=== PATIENT | female | born 1970 | race Caucasian/White ===

== ENCOUNTER → 2024-09-05 16:05 | Outpatient (BNVA) | payer OTHER, SELFPAY | PROVIDERS: PCP Family Medicine; Visit Provider Family Medicine | DX: Z00.00 Encounter for general adult medical examination without abnormal findings (principal); R73.01 Impaired fasting glucose; F17.210 Nicotine dependence, cigarettes, uncomplicated; T78.40XA Allergy, unspecified, initial encounter; X58.XXXA Exposure to other specified factors, initial encounter | CPT/HCPCS: 96127; 99212; 99396 ==

== ENCOUNTER 2024-09-11 11:44 | Outpatient (REF) | payer OTHER, SELFPAY ==
--- OUTSIDE RECORDS SUMMARY | 2024-09-11 13:22 | XMS_ITS | Clinical Summary ---
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 Role Phone Unavailable Primary Care Provider Unavailabl e Social History Tobacco Use Types Packs/Day Years Used Date Smoking Tobacco: Never Assessed Comments Unknown Sex and Gender Information Value Date Recorded Sex Assigned at Not on file Legal Sex Female 10:51 AM EST Gender Identity Not on file Sexual Orientation Not on file Plan of Treatment Health Maintenance Due Date Last Done Comments Breast Cancer Screening 1970 DTaP,Tdap,and Td Vaccines (1 - Tdap) 02/16/1987 Hepatitis B Vaccines (1 of 3 - 19+ 3-dose series) 02/16/1987 Cervical Cancer Screening: P ap Smear 02/16/1989 Pneumococcal Vaccine: 50+ Ye ars (1 of 1 - PCV) 02/16/2018 Zoster Vaccines (1 of 2) 02/16/2018 COVID-19 Vaccine ( - 2023-2 5 season) 2024 Influenza Vaccine (Season Ended) 2025 HIB Vaccines Aged Out No longer eligi ble based on patient's age to complete this topic HPV Vaccines Aged Out No longer eligi ble based on patient's age to complete this topic Hepatitis A Vaccines Aged Out No long er eligible based on patient's age to complete this topic IPV Vaccines Aged Out No longer eligi ble based on patient's age to complete this topic MMR Vaccines Aged Out No longer eligi ble based on patient's age to complete this topic Meningococcal ACWY Vaccine Aged Out N o longer eligible based on patient's age to complete this topic Meningococcal B Vaccine Aged Out No l onger eligible based on patient's age to complete this topic Pneumococcal Vaccine: Pediat rics (0 to 5 Years) and At-Risk Patients (6 to 64 Years) Aged Out No longer eligible b ased on patient's age to complete this topic RSV Immunization Patients Un lillie 20 months Aged Out No longer eligible b ased on patient's age to complete this topic Varicella Vaccines Aged Out No longer eligible based on patient's age to complete this topic
[2024-09-11 13:32] LABS: MANUAL DIFF FLAG NO
[2024-09-11 13:50] LABS: Basophils Percent Auto 0.4 % (0-2); Eosinophils Absolute Auto 0.1 X10*3/uL (0.0-0.4); Eosinophils Percent Auto 1.4 % (0-4); Hematocrit 43.3 % (37.0-47.0); Hemoglobin 14.3 g/dl (12.0-16.0); Imm Gran Abs Auto 0.03 X10*3/uL (0.00-0.03); Imm Gran Pct Auto 0.3 % (0.0-0.4); Lymphocytes Absolute Auto 2.1 X10*3/uL (1.2-4.9); Lymphocytes Percent Auto 21.5 % (20-40); Mean Corpuscular Hemoglobin 30.6 pg (27.0-33.0); Mean Corpuscular Volume 92.7 fL (80.0-98.0); Mean Platelet Volume 10.5 fL (9.4-12.3); Monocytes Absolute Auto 0.7 X10*3/uL (0.1-1.2); Monocytes Percent Auto 7.6 % (2-11); Neutrophils Absolute Auto 6.6 x10*3/uL (2.0-8.3); Neutrophils Percent Auto 68.8 % (45-73); Platelet Count 352 X10*3/uL (160-400); Red Blood Count 4.67 X10*6/uL (4.20-5.50); White Blood Count 9.6 X10*3/uL (4.8-10.8)
[2024-09-11 14:58] LABS: Folate 11.6 ng/mL (> or = 4.0); Vitamin B12 425 pg/mL (200-900)
[2024-09-11 15:14] LABS: Anion Gap 15 (12-20)
[2024-09-11 15:24] LABS: Alanine Aminotransferase 11 U/L (0-31); Albumin Level 4.3 g/dL (3.5-5.0); Aspartate Amino Transferase 24 U/L (5-31); Bilirubin Total 0.5 mg/dL (0.0-1.0); Blood Urea Nitrogen 19 mg/dL (9-16); Calcium 9.4 mg/dL (8.4-10.2); Carbon Dioxide 30 mmol/L (22-29); Chloride 100 mmol/L (96-108); Cholesterol 230 mg/dL (<200); Estimated Glomerular Filt Rate > 60; Glucose Fasting 92 mg/dL (60-99); HDL Cholesterol 90 mg/dL (>40); LDL Cholesterol Calculated 127 mg/dL (<100); Potassium 3.9 mmol/L (3.3-5.1); Sodium 141 mmol/L (135-145); TSH reflex Free T4 0.41 uIU/mL (0.32-4.0); Total Protein 7.2 g/dL (6.5-8.0); Triglycerides 65 mg/dL (<150); Vitamin D 25-OH Total 41.1 ng/mL (>30)
[2024-09-11 17:10] LABS: Alkaline Phosphatase 59 U/L (39-117)
== END 2024-09-11 11:45 | disposition home or self-care (01) ==
LOC: HO.HMGCLDS 11:44
PROVIDERS: PCP Family Medicine; Visit Provider Family Medicine
DX: Z00.00 Encounter for general adult medical examination without abnormal findings (principal); E53.8 Deficiency of other specified B group vitamins; E55.9 Vitamin D deficiency, unspecified
CPT/HCPCS: 36415; 80053; 80061; 82306; 82607; 82746; 84443; 85025

== ENCOUNTER 2024-09-13 10:00 | Outpatient (REF) | payer OTHER, SELFPAY ==
--- OUTSIDE RECORDS SUMMARY | 2024-09-13 15:33 | XMS_ITS | Clinical Summary ---
Author Organization [facility] ity Address [address] [place] [address] Care Team Providers Care Insurance Adjustor Name Role Phone Unavailable Primary Care Provider [...]
[2024-09-13 16:09] LABS: Appearance Urine Clear; Color Urine Yellow; Glucose Urine UA Negative (Negative); Leukocyte Esterase Urine Negative (Negative); Nitrite Urine Negative (Negative); PH 7.5 (5.0-9.0); Specific Gravity - Urine 1.025 (1.005-1.025); UMIC TRIGGER UACC YES; Urine Blood Trace (Negative); Urine Ketones Negative (Negative); Urine Protein Negative (Neg-Trace)
[2024-09-13 16:14] LABS: Bacteria Urine None Seen (None Seen); Hyaline Casts Urine 0-2 /LPF (0-2); Squamous Epithelial Cell Urine 0-2 /HPF (0-2); WBC Urine 0-5 /HPF (0-5)
[2024-09-13 17:07] LABS: Creatinine Urine 111.85 mg/dL
== END 2024-09-13 10:01 | disposition home or self-care (01) ==
LOC: HO.HMGCLNP 10:00
PROVIDERS: PCP Family Medicine; Visit Provider Family Medicine
DX: I10 Essential (primary) hypertension (principal)
CPT/HCPCS: 81001; 82043; 82570

== ENCOUNTER 2024-09-21 13:07 | Outpatient (AMB) | payer OTHER, SELFPAY ==
--- NOTE | 2024-09-21 13:04 | A.OFFPC_ITS ---
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 Labs drawn 09/11/24. Reviewed labs with pt. Triglycerides 65. TC 230. LDl 127. HDL 90. PFSH Medical History (Updated 09/21/24 @ 15:49 by Gurmeet Patel) COPD (chronic obstructive pulmonary disease) Smoker Cervical disc herniation Carpal tunnel syndrome of right wrist Weight loss Surgical History (Updated 09/13/24 @ 16:22 by Chelsea Arambula) H/O lymph node excision Family History (System 09/13/24 @ 16:22 by Chelsea Arambula) Mother Allergies Father Rheumatoid arthritis Maternal Uncle Substance abuse Brother Mental health disorder Father Glaucoma Paternal Grandfather Glaucoma Social History (System 09/13/24 @ 16:22 by Chelsea Arambula) Household Members: Spouse Both parents involved: No Caregiver staying overnight: No Housing: House Are you a primary animal care assistant to a significant other at home: No Do you presently have visiting nurse or other home services: No 75 years or older and lives alone: No Alcohol intake: current Alcohol intake frequency: a few times a month Patient Tobacco Use Status: Current everyday Tobacco user Tobacco use type: Cigarette Cigarette Packs Per Day: 0.5 Cigarettes Per Day: 4 e-Cigarette/Vaping Use: Former Use Second Hand Smoke Exposure: Yes Special bettye needs: No service: No Current occupational status: employed 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 Angel Rodríguez, Larissa Weiss, Juaquin Kenny and colleagues, with an educational valentín from [email or web address]. Physical exam (Primary Care) Tobacco/Smoking Status: Tobacco use Status Tobacco use date assessed 12/08/23 09/21/24 13:07 Patient Tobacco Use Status Current everyday Tobacco 09/21/24 13:07 Tobacco use type Cigarette 09/21/24 13:07 e-Cigarette/Vaping Use Former Use 09/21/24 13:07 Thrive Assessment: Date of Thrive Assessment Date Thrive assessed 09/02/24 09/21/24 13:07 Telehealth Telehealth Telehealth Platform: Telephone Location of provider rendering services: practice address Location of patient: address on file Patient Identification confirmed using: Name, : Yes Telehealth method: voice only Patient verbally consented to treatment: Yes Patient verbally consented to billing insurance company: Yes Patient informed of any privacy concerns related to visit: Yes Minutes spent on Phone/Video with Pt.: 5 Coding Level of Care Code Tele Est Pt Level 2 (42647) Diagnoses Elevated LDL cholesterol level E78.00 Breast cancer screening Z12.39 Assessment & Plan Assessment & Plan (1) Elevated LDL cholesterol level: Code(s): E78.00 - Pure hypercholesterolemia, unspecified Category: Medical Plan: Elevated?LDL?cholesterol.??Goal?is?less?than?100 HDL?ratios?are?good?however Encouraged?a?diet?lower?in?saturated?fats?and?cholesterol (2) Breast cancer screening: Code(s): Z12.39 - Encounter for other screening for malignant neoplasm of breast Category: Medical Plan: Mammogram?has?not?been?performed?yet. Will?call?patient?infections?require
--- OUTSIDE RECORDS SUMMARY | 2024-09-21 13:09 | XMS_ITS | Clinical Summary ---
Author Organization [facility] ity Address [address] [place] [address] Care Team Providers Care Maintenance Person Name Role Phone Unavailable Primary Care Provider [...]
== END 2024-09-21 17:05 ==
PROVIDERS: PCP Family Medicine; Visit Provider Family Medicine
DX: E78.00 Pure hypercholesterolemia, unspecified (principal); Z12.39 Encounter for other screening for malignant neoplasm of breast

== ENCOUNTER → 2024-09-21 13:07 | Outpatient (BNVA) | payer OTHER, SELFPAY | PROVIDERS: PCP Family Medicine; Visit Provider Family Medicine | DX: Z13.89 Encounter for screening for other disorder (principal) ==

== ENCOUNTER 2024-11-22 14:18 | Outpatient (AMB) | payer OTHER, SELFPAY ==
[2024-11-22 14:22] VITALS: BP 140/62; PULSE 67; O2SAT 97; BMI 18.4
--- NOTE | 2024-11-22 14:22 | A.OFFVIS_ITS ---
Vital Signs 11/22/24 14:22 Height 5 ft 6 in Weight 114 lb BMI 18.4 BP 140/62 H Blood Pressure Location Lt brachial Position Sitting Pulse 67 Pulse Oximetry (%) 97 Oxygen Delivery Method Room Air Intake Visit Reasons: GERD/med refill Intake Note: Patient complex follow up for GERD/med refill. ramy morgan alejandro 2023. Patient cc: GERD with burning sensation with out med, denies any other GI issues. 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 Accompanied by: Self / Same As Patient Allergies codeine Allergy (Mild, Verified 11/22/24 14:21) Itching trazodone Adverse Reaction (Mild, Verified 11/22/24 14:21) twitching Medication List - Last Reconciled 11/22/24 by Amy Wills CNP acetaminophen 1,000 mg (2 x 500 mg) PO QID PRN bupropion HCl 100 mg PO BID 30 days cholecalciferol (vitamin D3) 50 mcg PO DAILY PRN cyclobenzaprine 5 mg PO TID PRN diclofenac sodium 1% (Arthritis Pain (diclofenac)) 2 grams topical QID 30 days multivitamin with minerals (Hair,Skin and Nails tablet) 1 tab PO DAILY nut.tx.gluc.intol,lac-free,soy (Glucerna oral liquid) 1 ea PO DAILY 30 days pantoprazole 20 mg PO QAM zolpidem 5 mg PO BEDTIME PRN HPI HPI GERD/med refill: Details: Patient is a 54-year-old female with PMH of nicotine dependence and COPD. Last visit with RUKHSANA Julien 06/15/2023 for acid reflux. Rosalba presents for a follow-up regarding her acid reflux. Her acid reflux symptoms began in her early 30s and were initially self-managed with [id number] antacids until they ceased being effective. Current symptoms are relieved with pantoprazole. Her symptoms recur if she lies down soon after meals, notably after consuming certain foods like broccoli, aggravating her condition and causing severe stomach pain. Her symptoms are mostly well controlled if she avoids known triggers and adheres to dietary advice such as eating smaller meals and staying upright after eating. She denies any regurgitation, trouble swallowing, nausea, vomiting, or changes in appetite. She is agreeable to schedule an upper endoscopy and colonoscopy later this year. Rosalba also reveals orthopaedic issues, notably golfer's and tennis elbow, bursitis in both shoulders, and thumb pain, with plans to start therapy. Social hx: -rare ETOH use -marijuana nightly, denies other recreational drug use -former smoker, cessation 03/2024 -Diet: Tries to maintain weight with nutritional drinks; avoids trigger foods for acid reflux. PFS Medical History (Updated 11/22/24 @ 14:32 by Amy Wills CNP) COPD (chronic obstructive pulmonary disease) Smoker Cervical disc herniation Carpal tunnel syndrome of right wrist Weight loss Surgical History (Updated 09/13/24 @ 16:22 by Chelsea Arambula) H/O lymph node excision Family History (System 09/13/24 @ 16:22 by Chelsea Arambula) Mother Allergies Father Rheumatoid arthritis Maternal Uncle Substance abuse Brother Mental health disorder Father Glaucoma Paternal Grandfather Glaucoma Social History (System 09/13/24 @ 16:22 by Chelsea Arambula) Household Members: Spouse Both parents involved: No Caregiver staying overnight: No Housing: House Are you a primary children's zoo caretaker to a significant other at home: No Do you presently have visiting nurse or other home services: No 75 years or older and lives alone: No Alcohol intake: current Alcohol intake frequency: a few times a month Patient Tobacco Use Status: Current everyday Tobacco user Tobacco use type: Cigarette Cigarette Packs Per Day: 0.5 Cigarettes Per Day: 4 e-Cigarette/Vaping Use: Former Use Second Hand Smoke Exposure: Yes Special bettye needs: No service: No Current occupational status: employed 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 Cognitive needs: No Hearing needs: No Vision needs: Yes (glasses) Female Reproductive History Menstrual Age of Menarche: 11 Review of Systems Const Reports as per HPI ENT Reports as per HPI Card Reports as per HPI Resp Reports as per HPI GI Reports as per HPI Reports as per HPI Physical Exam Vital Signs: Last Vital Signs Pulse 67 11/22/24 14:22 BP 140/62 H 11/22/24 14:22 Pulse Ox 97 11/22/24 14:22 Oxygen Delivery Method Room Air 11/22/24 14:22 BMI result Body Mass Index 18.4 Const General: healthy appearing, no acute distress and well developed Nutritional Appearance: well nourished Orientation/consciousness: patient oriented x3 HEENT Head: Yes normal to inspection, Yes normocephalic and Yes atraumatic Face and sinus: Yes normal facial exam Eyes General: appearance normal, both eyes and all related structures Neck Neck: Yes normal visual inspection Resp Effort & Inspection: normal respiratory effort, able to speak in complete sentences, no tracheal deviation and symmetric chest movement Cardio Jugular venous distension: no JVD Neuro General: patient oriented x3 Gait exam (Neuro): Normal gait present Psych Appearance: grossly normal Mental Status: mental status grossly normal Speech and movement: Normal speech and movement present Affect: normal affect Attitude: cooperative Thought process: Normal thought process present Thought content: Normal thought content present Insight: Good insight present (Psych) Judgement: Good judgement present (Psych) Assessment & Plan Assessment & Plan (1) Acid reflux: Code(s): K21.9 - Gastro-esophageal reflux disease without esophagitis Category: Medical Plan: GERD managed by pantoprazole. Additional Tests: Upper endoscopy scheduled. Medications: Continued pantoprazole. Refills sent. Encouraged to take pantoprazole as prescribed, taken at least 30-60 minutes before a meal. Education on GERD prevention : -Advised against heavy meals; encouraged small, frequent meals instead of large ones. - Instructed to remain upright for 2?3 hours after eating. - Advised to avoid late-night meals, spicy foods, caffeine, alcohol, known dietary triggers, and tight-fitting clothing. - Emphasis placed on gradual implementation of lifestyle changes to improve adherence and symptom control. (2) Screening for colon cancer: Code(s): Z12.11 - Encounter for screening for malignant neoplasm of colon Category: Medical Plan: Due for routine colonoscopy screening. No alarm features Medications: -prescriptions for laxative tablets and MiraLax sent to pharmacy; instructions for Gatorade purchase and clear liquid diet given.. Patient educated on scheduling process, procedure preparation, including avoiding certain foods and ensuring clear liquid intake Advised on necessity for ride post-procedure due to sedation. Plan Follow-up after endoscopy or sooner as needed Time: I spent a total of 20 minutes on the date of encounter which includes: Preparing to see the patient (reviewed previous documentation, test results and medical history) Performing a medically appropriate exam and/or evaluation Ordering medications, tests, and procedures Documenting clinical information in the health record Medications: New polyethylene glycol 3350 (Miralax) per colonoscopy prep instructions 238 grams PO ONCE 238 grams 0RF bisacodyl Take four tablets once for 1 day per colonoscopy instructions 5 mg PO ONCE 4 tabs 0RF 1 day Refilled pantoprazole 20 mg PO QAM 90 tabs 1RF Coding Level of Care Code Established Pt Est Pt Level 3 (91662) Patient Type Established Diagnoses Acid reflux K21.9 Screening for colon cancer Z12.11
--- OUTSIDE RECORDS SUMMARY | 2024-11-22 15:08 | XMS_ITS | Clinical Summary ---
Author Organization [facility] ity Address [address] [place] [address] Care Team Providers Care Bindery Supervisor Name Role Phone Unavailable Primary Care Provider [...] - 2023-2 5 season) 2024 Influenza Vaccine (#1) 2025 HIB Vaccines Aged Out No longer [...]
== END 2024-11-22 14:48 | disposition home or self-care (01) ==
PROVIDERS: PCP Family Medicine; Visit Provider Nurse Practitioner Family
DX: K21.9 Gastro-esophageal reflux disease without esophagitis (principal)
CPT/HCPCS: 99213

== ENCOUNTER → 2024-11-22 14:18 | Outpatient (BNVA) | payer OTHER, SELFPAY | PROVIDERS: PCP Family Medicine; Visit Provider Nurse Practitioner Family | DX: Z12.11 Encounter for screening for malignant neoplasm of colon (principal); K21.9 Gastro-esophageal reflux disease without esophagitis | CPT/HCPCS: 99212 ==

== ENCOUNTER 2025-01-10 12:54 | Outpatient (RCR) | payer OTHER, SELFPAY ==
--- NOTE | 2024-12-18 16:28 | MHC.OT.OP ---
[facility] Office [address] [facility] [phone] F: [phone] F: [phone] Occupational Therapy Progress Note Patient Name: Marla Quintana Diagnosis: Date of Surgery: Date of Evaluation: 12/14/24 Treatments to Date: 1 Cancellations to Date: No Shows to Date: Subjective: SEE IE Pain Score: Pain Location: Objective Measures: Status: Assessment: Short Term Goals: Pt will be compliant w/ jt. protection techniques Pt will be complaint w/ her HEP Pt will report 3/ 10 pain w/ use of her R UE Gelatin Powder Mixer Goals: Pt will report being able to open a jar w/ out difficulty Pt will have a R field services analyst of 65 LBS Pt will report decreased pain of 2/7 w/ active use of her L thumb Frequency and Duration: The patient will be seen 2xs a week for 4 weeks Treatment Plan: Therapeutic Exercise Therapeutic Activity Home Exercise Program Splinting Neuro Re-ed Patient Education Desensitization/Sensory Re-ed Edema Control ADL Training Ultrasound Iontophoresis Paraffin Fluidotherapy MHP Cold Packs Joint Mobilization Soft Tissue Mobilization Kinesiotaping Electronically Signed By: HIRAM WILSON OTR/L Reviewed/agree with student documentation: Therapist:
--- NOTE | 2025-01-10 16:08 | MHC.OT.DC ---
[facility] Office [address] [facility] [phone] F: [phone] F: [phone] Occupational Therapy Discharge Note Patient Name: Marla Quintana Provider: Moisés Dominguez Diagnosis: B/L elbow, wrist, hand pain Date of Surgery: Date of Evaluation: 12/14/24 Date of Discharge: Treatments to Date: 7 Cancellations to Date: No Shows to Date: Discharge Status: Achieved Goals Improved Function Independent with HEP Discharge Summary: Pt tolerated therapy well OK to d/charge pt has met her goals for therapy and will progress at home w/ HEP & jt protections Electronically Signed By: Estephania Farris OTR/L Reviewed/agree with student documentation: Therapist: Please Sign and return to therapist, thank you for your referral.
== END 2025-03-11 13:51 | disposition home or self-care (01) ==
LOC: HO.OT 12:54
PROVIDERS: PCP Family Medicine; Visit Provider Family Medicine
DX: M77.8 Other enthesopathies, not elsewhere classified (principal); M79.645 Pain in left finger(s)
CPT/HCPCS: 97110; 97140; 97166